=== PATIENT | female | born 1930 | race Caucasian/White ===

== ENCOUNTER 2017-12-10 13:03 | Inpatient (IN) | payer OTHER, BC ==
[~2017-12-10] VITALS: Ht 152.4 cm; Wt 49.6 kg
[2017-12-10 13:08] VITALS: BP 107/58
[2017-12-10] MEDS ORDERED: FLOVENT 220 MCG (13:13)
[2017-12-10] MEDS ORDERED: MELOXICAM TAB 15MG (13:13)
[2017-12-10] MEDS ORDERED: FLUOCINONIDE 0.05% (13:13)
[2017-12-10] MEDS ORDERED: TRAMADOL HCL TAB 50MG (13:13)
[2017-12-10] MEDS ORDERED: HYDROCO/APAP TAB 5-325MG (13:13)
[2017-12-10] MEDS ORDERED: ESTRADIOL 10 MCG (13:13)
[2017-12-10] MEDS ORDERED: [UNRECOGNIZED DRUG - OTHER] (13:13)
[2017-12-10] MEDS ORDERED: LORAZEPAM TAB 0.5MG (13:13)
[2017-12-10] MEDS ORDERED: ONDANSETRON 4 MG/2 ML VIAL IVP ONE (13:20)
[2017-12-10] MEDS ORDERED: NACL 0.9% 1,000 ML IV ONE (13:20)
[2017-12-10] MEDS ORDERED: KETOROLAC 30 MG/ML VIAL IVP ONE (13:20)
[2017-12-10] MEDS ORDERED: NACL 0.9% 1,000 ML IV SCH ×2 (15:00→18:25)
[2017-12-10 15:14] LABS: ANION GAP 10.7 (8-16); BASOPHILS # (AUTO) 0.1 K/uL (0.00-0.22); BASOPHILS % (AUTO) 0.7 % (0.0-2.0); CARBON DIOXIDE 28.4 mmol/L (21-32); CHLORIDE 99 mmol/L (98-107); CREATININE 0.6 mg/dL (0.6-1.3); EOSINOPHILS # (AUTO) 0.1 K/uL (0-0.4); EOSINOPHILS % (AUTO) 0.8 % (0.0-4.0); GLUCOSE 88 mg/dL (74-106); HEMATOCRIT 30.6 % (36-48); LYMPHOCYTES # (AUTO) 0.8 K/uL (2.5-16.5); LYMPHOCYTES % (AUTO) 7.1 % (20.5-51.1); MEAN CORPUSCULAR HEMOGLOBIN 29 pg (27-31); MEAN CORPUSCULAR HGB CONC 33 g/dL (33-37); MEAN CORPUSCULAR VOLUME 88.4 fL (80-94); MONOCYTES # (AUTO) 0.8 K/uL (0.8-1.0); MONOCYTES % (AUTO) 7.4 % (1.7-9.3); PLATELET COUNT (AUTO) 406 K/uL (140-450); POTASSIUM 4.1 mmol/L (3.5-5.1); RED BLOOD CELL COUNT(AUTO) 3.46 MIL/uL (4.20-5.40); RED CELL DISTRIBUTION WIDTH 13.5 % (11.6-13.7); SODIUM SERUM 134 mmol/L (136-145); UREA NITROGEN, BLOOD 13 mg/dL (7-18); WHITE BLOOD COUNT (AUTO) 10.8 K/uL (4.8-10.8)
[2017-12-10 15:17] LABS: ALBUMIN 2.8 g/dL (3.4-5.0); ASPARTATE AMINOTRANSFERASE 22 U/L (15-37); TOTAL BILIRUBIN 0.3 mg/dL (0.0-1.0)
[2017-12-10] MEDS ORDERED: HYDROcodone/APAP 5/325 MG 1 TAB TAB PO PRN (16:10)
[2017-12-10] MEDS ORDERED: ONDANSETRON 4 MG/2 ML VIAL IVP PRN (16:10)
[2017-12-10] MEDS ORDERED: MECLIZINE 25 MG TAB PO PRN (16:10)
[2017-12-10] MEDS ORDERED: ACETAMINOPHEN 325 MG TAB PO PRN (16:10)
[2017-12-10 16:11] LABS: BARBITURATE, URINE NEG. ng/ml (NEG <=200); BENZODIAZEPINE, URINE NEG. ng/mL (NEG <=200); CANNABINOID, URINE NEG. ng/mL (NEG <=50); COCAINE, URINE NEG. ng/mL (NEG <=300); OPIATE, URINE NEG. ng/mL (NEG <=2000); PHENCYCLIDINE SCREEN,URINE NEG. ng/mL (NEG <=25)
[2017-12-10 17:00] VITALS: BP 107/68
[2017-12-10 17:06] LABS: PROTHROMBIN TIME 10.6 secs (10.8-13.4)
[2017-12-10 17:07] LABS: CHOL/HDL RATIO 2.2 (1-4.5); FREE T4 (FREE THYROXINE) 1.17 ng/dL (0.76-1.46); THYROID STIMULATING HORMONE 2.08 uIU/mL (0.34-3.74)
[2017-12-10 17:35] LABS: APPEARANCE,URINE CLEAR (CLEAR); BILIRUBIN,URINE NEGATIVE (NEGATIVE); BLOOD, URINE NEGATIVE (NEGATIVE); COLOR,URINE YELLOW (YELLOW); LEUKOCYTE ESTERASE ,URINE NEGATIVE (NEGATIVE); NITRITE, URINE NEGATIVE (NEGATIVE); PH,URINE 7.5 (5.0-9.0); UGLUCOSE NEGATIVE (NEGATIVE)
[2017-12-10] MEDS ORDERED: ALBUTEROL SULFATE/IPRATROPIU 3 ML SOL IH PRN (18:25)
[2017-12-10] MEDS ORDERED: SIMETHICONE 80 MG TAB.CHEW PO PRN (18:25)
[2017-12-10] MEDS ORDERED: ALBU0.0912 INH (18:26)
[2017-12-10] MEDS ORDERED: SIME80CT70 PO (18:26)
[2017-12-10] MEDS ORDERED: ASPI81CT89 PO (18:26)
[2017-12-10] MEDS ORDERED: FLONAS NS (18:26)
[2017-12-10] MEDS: KETOROLAC 15 MG/ML VIAL IVP PRN (18:48)
[2017-12-10 20:00] VITALS: BP 113/48
[2017-12-10] MEDS ORDERED: SODIUM PHOSPHATE 118 ML ENEM RC SCH (23:00)
[2017-12-11 00:04] VITALS: BP 122/57
[2017-12-11] MEDS: KETOROLAC 15 MG/ML VIAL IVP PRN ×2 (00:07→08:34)
[2017-12-11 04:00] VITALS: BP 114/44
[2017-12-11] MEDS: PANTOPRAZOLE 40 MG TABEC PO SCH (06:30)
[2017-12-11 06:57] LABS: ANION GAP 12.7 (8-16); CARBON DIOXIDE 27.4 mmol/L (21-32); CHLORIDE 102 mmol/L (98-107); CREATININE 0.7 mg/dL (0.6-1.3); GLUCOSE 96 mg/dL (74-106); POTASSIUM 4.1 mmol/L (3.5-5.1); SODIUM SERUM 138 mmol/L (136-145); UREA NITROGEN, BLOOD 17 mg/dL (7-18)
[2017-12-11 07:09] LABS: MAGNESIUM 2.2 mg/dL (1.8-2.4); PHOSPHORUS 4.2 mg/dL (2.5-4.9)
[2017-12-11 07:15] LABS: BASOPHILS # (AUTO) 0.1 K/uL (0.00-0.22); BASOPHILS % (AUTO) 1.5 % (0.0-2.0); EOSINOPHILS # (AUTO) 0.1 K/uL (0-0.4); EOSINOPHILS % (AUTO) 1.7 % (0.0-4.0); HEMOGLOBIN 9.2 g/dL (12.0-16.0); LYMPHOCYTES # (AUTO) 1.1 K/uL (2.5-16.5); LYMPHOCYTES % (AUTO) 14.6 % (20.5-51.1); MEAN CORPUSCULAR HEMOGLOBIN 28 pg (27-31); MEAN CORPUSCULAR HGB CONC 32 g/dL (33-37); MEAN CORPUSCULAR VOLUME 88.7 fL (80-94); MONOCYTES # (AUTO) 0.8 K/uL (0.8-1.0); MONOCYTES % (AUTO) 9.9 % (1.7-9.3); NEUTROPHILS # (AUTO) 5.8 K/uL (1.8-7.7); NEUTROPHILS % (AUTO) 72.3 % (42.2-75.2); PLATELET COUNT (AUTO) 360 K/uL (140-450); RED BLOOD CELL COUNT(AUTO) 3.28 MIL/uL (4.20-5.40); RED CELL DISTRIBUTION WIDTH 13.2 % (11.6-13.7); WHITE BLOOD COUNT (AUTO) 7.9 K/uL (4.8-10.8)
[2017-12-11 08:00] VITALS: BP 122/49
[2017-12-11] MEDS: DOCUSATE 100 MG/10 ML UDC GT SCH ×2 (08:32→13:06)
[2017-12-11] MEDS: FLUTICASONE NASAL 50 MCG/ACTUATION 16 GM BTL NS SCH (08:32)
[2017-12-11 12:00] VITALS: BP 89/44
[2017-12-11] MEDS: traMADol 50 MG TAB PO PRN ×2 (12:32→17:32)
[2017-12-11] MEDS: MIDODRINE 5 MG TAB PO SCH ×2 (12:34→19:42)
[2017-12-11 16:00] VITALS: BP 107/46
[2017-12-11 20:00] VITALS: BP 119/50
[2017-12-12] VITALS: BP 145/76
[2017-12-12] MEDS: KETOROLAC 15 MG/ML VIAL IVP PRN (00:08)
[2017-12-12 04:00] VITALS: BP 115/47
[2017-12-12] MEDS: PANTOPRAZOLE 40 MG TABEC PO SCH (06:06)
[2017-12-12] MEDS: MIDODRINE 5 MG TAB PO SCH (06:06)
[2017-12-12 07:05] LABS: BASOPHILS # (AUTO) 0.1 K/uL (0.00-0.22); BASOPHILS % (AUTO) 1.2 % (0.0-2.0); EOSINOPHILS # (AUTO) 0.1 K/uL (0-0.4); EOSINOPHILS % (AUTO) 1.5 % (0.0-4.0); HEMATOCRIT 27.2 % (36-48); LYMPHOCYTES # (AUTO) 1.3 K/uL (2.5-16.5); LYMPHOCYTES % (AUTO) 17.1 % (20.5-51.1); MEAN CORPUSCULAR HEMOGLOBIN 29 pg (27-31); MEAN CORPUSCULAR HGB CONC 33 g/dL (33-37); MEAN CORPUSCULAR VOLUME 86.8 fL (80-94); MONOCYTES # (AUTO) 0.8 K/uL (0.8-1.0); MONOCYTES % (AUTO) 10.5 % (1.7-9.3); NEUTROPHILS # (AUTO) 5.6 K/uL (1.8-7.7); NEUTROPHILS % (AUTO) 69.7 % (42.2-75.2); PLATELET COUNT (AUTO) 368 K/uL (140-450); RED BLOOD CELL COUNT(AUTO) 3.14 MIL/uL (4.20-5.40); RED CELL DISTRIBUTION WIDTH 13.6 % (11.6-13.7); WHITE BLOOD COUNT (AUTO) 7.9 K/uL (4.8-10.8)
[2017-12-12 07:10] LABS: ANION GAP 13.2 (8-16); CARBON DIOXIDE 24.6 mmol/L (21-32); CHLORIDE 100 mmol/L (98-107); CREATININE 0.6 mg/dL (0.6-1.3); GLUCOSE 87 mg/dL (74-106); POTASSIUM 3.8 mmol/L (3.5-5.1); SODIUM SERUM 134 mmol/L (136-145); UREA NITROGEN, BLOOD 27 mg/dL (7-18)
[2017-12-12 08:00] VITALS: BP 125/48
[2017-12-12] MEDS ORDERED: MIDO10TA PO (08:42)
[2017-12-12] MEDS ORDERED: DOCUSATE 100 MG/10 ML UDC GT SCH (09:00)
[2017-12-12] MEDS ORDERED: PSYLLIUM 12.2 GM/PKT PO SCH (09:00)
[2017-12-12] MEDS: FLUTICASONE NASAL 50 MCG/ACTUATION 16 GM BTL NS SCH (09:00)
[2017-12-12 11:30] VITALS: BP 132/52
== END 2017-12-12 11:45 | disposition home or self-care (01) | DRG 312 ==
LOC: MED 13:03 → MTU 16:06
PROVIDERS: ADMIT Family Medicine Sports Medicine; ATTEND Family Medicine Sports Medicine
DX: I95.1 Orthostatic hypotension (principal); N17.0 Acute kidney failure with tubular necrosis; E43 Unspecified severe protein-calorie malnutrition; M48.56XA Collapsed vertebra, not elsewhere classified, lumbar region, initial encounter for fracture; E87.1 Hypo-osmolality and hyponatremia; Z72.820 Sleep deprivation; M40.202 Unspecified kyphosis, cervical region; M43.12 Spondylolisthesis, cervical region; D63.8 Anemia in other chronic diseases classified elsewhere; J45.909 Unspecified asthma, uncomplicated; G89.29 Other chronic pain; M54.9 Dorsalgia, unspecified; Z66 Do not resuscitate; M19.90 Unspecified osteoarthritis, unspecified site; I65.29 Occlusion and stenosis of unspecified carotid artery; I35.0 Nonrheumatic aortic (valve) stenosis; M81.0 Age-related osteoporosis without current pathological fracture; M48.00 Spinal stenosis, site unspecified; K58.1 Irritable bowel syndrome with constipation; M62.58 Muscle wasting and atrophy, not elsewhere classified, other site; Z96.641 Presence of right artificial hip joint; M48.8X9 Other specified spondylopathies, site unspecified; I44.1 Atrioventricular block, second degree; Z88.5 Allergy status to narcotic agent; Z88.8 Allergy status to other drugs, medicaments and biological substances; Z90.49 Acquired absence of other specified parts of digestive tract; Z79.899 Other long term (current) drug therapy; Z68.21 Body mass index [BMI] 21.0-21.9, adult
CPT/HCPCS: 36415; 70450; 71045; 72050; 74018; 80048; 80053; 80305; 81003; 82150; 83036; 83690; 83735; 83880; 84100; 84439; 84443; 84479; 84484; 85025; 85610; 85730; 87081; 93005; 93880; 96374; 96375; 97110; 99285; J1885; J2405; J7030; Q0092

== ENCOUNTER 2017-12-21 16:32 | Inpatient (IN) | payer OTHER, BC ==
[~2017-12-21] VITALS: Ht 152.4 cm; Wt 47.2 kg
[~2017-12-21 16:32] MED LIST: ALBU0.0912 INH; ASPI81CT89 PO; ESTRADIOL 10 MCG; FLONAS NS; FLOVENT 220 MCG; FLUOCINONIDE 0.05%; HYDROCO/APAP TAB 5-325MG; LORAZEPAM TAB 0.5MG; MELOXICAM TAB 15MG; MIDO10TA PO; SIME80CT70 PO; TRAMADOL HCL TAB 50MG; [UNRECOGNIZED DRUG - OTHER]
[2017-12-21 16:53] VITALS: BP 115/47
--- NOTE | 2017-12-21 18:03 | NUR ---
PATIENT TO BED #2
--- NOTE | 2017-12-21 18:09 | NUR ---
87Y F BIB FAMILY C/O COSTIPATION X 2 DAYS. PT STATES SHE NORMALLY HAS A BM 2-3X A DAY. PT STATES SHE HAS A L1 COMPRESSION FRACTURE. PT WAS SEEN YESTERDAY AT [facility] WHERE THEY STRAIGHT CATH HER AND GOT RELIEF. PT STATES ATTEMPTED FLEET ENEMA AND GLYCERIN SUPP TODAY AT 1300 AND 1330 AND STILL NO RELIEF. ER MD DR HERNANDEZ MADE AWARE.
--- NOTE | 2017-12-21 18:40 | NUR ---
PT PROVIDED URINE CUP, BUT STATES SHE IS CANNOT URINATE BC SHE IS CONSTIPATED. ER MD DR HERNANDEZ MADE AWARE.
--- NOTE | 2017-12-21 18:40 | NUR ---
SPOKE TO PT PT OK WITH STRIAT CATH FOR URINE COLLECTION, SPOKE TO DR HERNANDEZ, OK TO [facility] CATH.
[2017-12-21 18:44] LABS: BASOPHILS # (AUTO) 0.1 K/uL (0.00-0.22); BASOPHILS % (AUTO) 0.8 % (0.0-2.0); EOSINOPHILS # (AUTO) 0.1 K/uL (0-0.4); EOSINOPHILS % (AUTO) 1.5 % (0.0-4.0); HEMATOCRIT 29.7 % (36-48); HEMOGLOBIN 9.6 g/dL (12.0-16.0); LYMPHOCYTES # (AUTO) 1.5 K/uL (2.5-16.5); LYMPHOCYTES % (AUTO) 18.5 % (20.5-51.1); MEAN CORPUSCULAR HEMOGLOBIN 28 pg (27-31); MEAN CORPUSCULAR HGB CONC 32 g/dL (33-37); MEAN CORPUSCULAR VOLUME 87.4 fL (80-94); MONOCYTES # (AUTO) 0.6 K/uL (0.8-1.0); MONOCYTES % (AUTO) 7.8 % (1.7-9.3); NEUTROPHILS # (AUTO) 5.8 K/uL (1.8-7.7); NEUTROPHILS % (AUTO) 71.4 % (42.2-75.2); PLATELET COUNT (AUTO) 592 K/uL (140-450); RED CELL DISTRIBUTION WIDTH 14.5 % (11.6-13.7); WHITE BLOOD COUNT (AUTO) 8.1 K/uL (4.8-10.8)
[2017-12-21 18:54] LABS: ANION GAP 11.1 (8-16); CARBON DIOXIDE 28.2 mmol/L (21-32); CHLORIDE 97 mmol/L (98-107); CREATININE 0.7 mg/dL (0.6-1.3); GLUCOSE 94 mg/dL (74-106); POTASSIUM 4.3 mmol/L (3.5-5.1); SODIUM SERUM 132 mmol/L (136-145); UREA NITROGEN, BLOOD 15 mg/dL (7-18)
[2017-12-21 19:00] LABS: ALBUMIN 2.6 g/dL (3.4-5.0); ASPARTATE AMINOTRANSFERASE 22 U/L (15-37); LIPASE 93 U/L (73-393); TOTAL BILIRUBIN 0.2 mg/dL (0.0-1.0)
--- NOTE | 2017-12-21 19:15 | NUR ---
Pt report given to EASTON. Transfer of care at this time.
--- NOTE | 2017-12-21 19:15 | NUR ---
RECEIVED REPORT FROM SB VOGEL AND MARLEN DICKERSON
[2017-12-21 19:22] LABS: APPEARANCE,URINE CLEAR (CLEAR); BILIRUBIN,URINE NEGATIVE (NEGATIVE); BLOOD, URINE NEGATIVE (NEGATIVE); COLOR,URINE YELLOW (YELLOW); LEUKOCYTE ESTERASE ,URINE NEGATIVE (NEGATIVE); NITRITE, URINE NEGATIVE (NEGATIVE); PH,URINE 5.5 (5.0-9.0); UGLUCOSE NEGATIVE (NEGATIVE)
[2017-12-21] MEDS ORDERED: MORPHINE SULFATE 4 MG/ML SYR IVP ONE (20:50)
[2017-12-21] MEDS ORDERED: NACL 0.9% 1,000 ML IV ONE (20:50)
[2017-12-21] MEDS ORDERED: ONDANSETRON 4 MG/2 ML VIAL IVP PRN (21:30)
[2017-12-21] MEDS ORDERED: HYDROcodone/APAP 7.5/325 MG 1 TAB PO PRN (21:30)
[2017-12-21 22:29] LABS: CHOL/HDL RATIO 2.2 (1-4.5); FREE T4 (FREE THYROXINE) 1.06 ng/dL (0.76-1.46); PHOSPHORUS 4.1 mg/dL (2.5-4.9); THYROID STIMULATING HORMONE 1.99 uIU/mL (0.34-3.74)
[2017-12-21 22:30] VITALS: BP 116/61
--- NOTE | 2017-12-21 22:30 | NUR ---
PATIENT ADMITTED TO THE UNIT FROM ER. PATIENT AWAKE, ALERT AND ORIENTED. NO S/S OF DISTRESS. PATIENT ON ROOM AIR. NO SOB. RAYO CATHETER IN PLACE DRAINING CLEAR YELLOW URINE. IV LINE NOTED TO THE RIGHT FOREARM SALINE LOCKED. PATIENT PLACED ON TELE MONITORING. FALL PRECAUTIONS IN PLACE. WILL CONTINUE TO MONITOR
--- NOTE | 2017-12-21 23:03 | NUR ---
PATIENT REFUSED TO HAVE ENEMA. PATIENT STATES, "I ALREADY HAD AN ENEMA THIS MORNING. IT DOES NOT WORK." MADE DR FIGUEROA AWARE
[2017-12-22] VITALS: BP 118/62
--- NOTE | 2017-12-22 | NUR ---
ACTUAL TIME AND DATE OF DOCUMENTATION 222912/21/17
--- NOTE | 2017-12-22 00:06 | NUR ---
ACTUAL DATE AND TIME OF DOCUMENTATION 12/21 2229 Addendum: 12/22/17 at 0007 by Ovi Betancourt RN Amended: Links added.
--- NOTE | 2017-12-22 00:08 | NUR ---
ACTUAL DATE AND TIME OF DOCUMENTATION 12/21 2229 Addendum: 12/22/17 at 0008 by Ovi Betancourt RN Amended: Links added.
--- NOTE | 2017-12-22 00:09 | NUR ---
ACTUAL DATE AND TIME OF DOCUMENTATION 12/21 2229 Addendum: 12/22/17 at 0009 by Ovi Betancourt RN Amended: Links added.
--- NOTE | 2017-12-22 00:10 | NUR ---
ACTUAL DATE AND TIME OF DOCUMENTATION 12/21 2229 Addendum: 12/22/17 at 0010 by Ovi Betancourt RN Amended: Links added.
[2017-12-22] MEDS ORDERED: SIMETHICONE 80 MG TAB.CHEW PO SCH ×2 (01:15→06:20)
[2017-12-22] MEDS ORDERED: ALBUTEROL SULFATE/IPRATROPIU 3 ML SOL IH PRN (01:20)
[2017-12-22] MEDS ORDERED: SIMETHICONE 80 MG TAB.CHEW PO PRN ×2 (01:25→08:00)
[2017-12-22] MEDS: NACL 0.9% 1,000 ML IV SCH ×2 (02:00→14:45)
[2017-12-22 04:00] VITALS: BP 133/58
[2017-12-22] MEDS ORDERED: GLYCERIN ADULT 1 SUPP RC SCH (06:00)
[2017-12-22] MEDS ORDERED: FERRIC GLUCONATE 125 MG in NACL 0.9% 100 ML IV SCH (06:00)
--- NOTE | 2017-12-22 06:00 | NUR ---
PATIENT COMPLAINS OF BLADDER DISCOMFORT AND REQUESTS TO HAVE HER RAYO CATHETER DISCONTINUED. MADE DR FIGUEROA AWARE
[2017-12-22 06:35] LABS: BASOPHILS % (AUTO) 0.5 % (0.0-2.0); EOSINOPHILS # (AUTO) 0.1 K/uL (0-0.4); EOSINOPHILS % (AUTO) 1.4 % (0.0-4.0); HEMATOCRIT 25.6 % (36-48); HEMOGLOBIN 8.4 g/dL (12.0-16.0); LYMPHOCYTES # (AUTO) 1.5 K/uL (2.5-16.5); LYMPHOCYTES % (AUTO) 17.7 % (20.5-51.1); MEAN CORPUSCULAR HEMOGLOBIN 29 pg (27-31); MEAN CORPUSCULAR HGB CONC 33 g/dL (33-37); MEAN CORPUSCULAR VOLUME 87.8 fL (80-94); MONOCYTES # (AUTO) 0.6 K/uL (0.8-1.0); MONOCYTES % (AUTO) 6.9 % (1.7-9.3); NEUTROPHILS # (AUTO) 6.4 K/uL (1.8-7.7); NEUTROPHILS % (AUTO) 73.5 % (42.2-75.2); PLATELET COUNT (AUTO) 458 K/uL (140-450); RED BLOOD CELL COUNT(AUTO) 2.92 MIL/uL (4.20-5.40); RED CELL DISTRIBUTION WIDTH 14.3 % (11.6-13.7); WHITE BLOOD COUNT (AUTO) 8.7 K/uL (4.8-10.8)
--- NOTE | 2017-12-22 06:38 | NUR ---
PATIENT REFUSES TO HAVE THE GLYCERIN SUPPOSITORY. PATIENT STATES, "I HAVE TAKEN THAT BEFORE I WENT HERE AND IT DOES NOT HELP." DR FIGUEROA AWARE
[2017-12-22 06:52] LABS: ANION GAP 10.7 (8-16); CARBON DIOXIDE 26.2 mmol/L (21-32); CHLORIDE 104 mmol/L (98-107); CREATININE 0.5 mg/dL (0.6-1.3); GLUCOSE 82 mg/dL (74-106); POTASSIUM 3.9 mmol/L (3.5-5.1); SODIUM SERUM 137 mmol/L (136-145); UREA NITROGEN, BLOOD 11 mg/dL (7-18)
[2017-12-22 06:59] LABS: MAGNESIUM 1.9 mg/dL (1.8-2.4); PHOSPHORUS 2.9 mg/dL (2.5-4.9)
--- NOTE | 2017-12-22 07:29 | NUR ---
PATIENT REPORT GIVEN AT BEDSIDE. PATIENT ENDORSED IN STABLE CONDITION
--- NOTE | 2017-12-22 07:30 | NUR ---
RECEIVED REPORT FROM PROFESSOR OF FAMILY MEDICINE NURSE SETH AT BEDSIDE FOR CONTINUITY OF CARE. PT IS AWAKE AND ORIENTED X4. INTRODUCED SELF AND UPDATED BOARD. NO SIGNS OF DISTRESS. WILL CONTINUE TO MONITOR.
[2017-12-22 08:00] VITALS: BP 141/68
--- NOTE | 2017-12-22 08:00 | NUR ---
PATIENT AWAKE AND ALERT. SITTING UP IN BED. DENIES SOB. DENIES ANY RESPIRATORY DISCOMFORT. BREATH SOUNDS CLEAR. HR 72. O2 SAT 97% ON ROOM AIR. NO TX INDICATED AT THIS TIME. NO RESPIRATORY DISTRESS NOTED AT THIS TIME. WILL CONTINUE TO MONITOR.
[2017-12-22] MEDS ORDERED: DOCUSATE SODIUM 100 MG GELCAP PO SCH ×2 (09:00→10:00)
[2017-12-22] MEDS: ASPIRIN 81 MG TAB.CHEW PO SCH (09:00)
[2017-12-22] MEDS: FLUTICASONE NASAL 50 MCG/ACTUATION 16 GM BTL NS SCH (09:00)
--- NOTE | 2017-12-22 10:29 | NUR ---
PATIENT HAS BEEN SCREENED AND CATEGORIZED MODERATE NUTRITION RISK. PATIENT WILL BE SEEN WITHIN 3-5 DAYS OF ADMISSION. 12/24/17 - 12/26/[address]
[2017-12-22] MEDS: FERRIC GLUCONATE 125 MG in NACL 0.9% 100 ML IV SCH (11:28)
[2017-12-22] MEDS: SODIUM PHOSPHATE 118 ML ENEM RC PRN ×4 (11:28→22:03)
--- NOTE | 2017-12-22 11:28 | NUR ---
ADMINISTERED FLEET ENEMA. PT HAD NO BM POST ADMIN. PT YELLING AND SCREAMING OF PAIN. ASSISTED PT BACK TO BED, WILL CONTINUE TO MONITOR
[2017-12-22] MEDS: ACETAMINOPHEN 325 MG TAB PO PRN (11:51)
[2017-12-22] MEDS ORDERED: ACETAMINOPHEN 325 MG TAB ONE (11:52)
[2017-12-22 12:00] VITALS: BP 107/48
[2017-12-22] MEDS ORDERED: MAGNESIUM CITRATE 300 ML BTL PO PRN (13:00)
--- NOTE | 2017-12-22 13:15 | NUR ---
DR. ANTONIO CAME IN AND SPOKE WITH PT AND CAREGIVER. PT REPORTED THAT SHE STILL HAD NO BM AFTER ENEMA AND WANTS A BOWEL VAC. TOLD PT THAT CANNOT BE DONE HERE AND ORDERED MAG CIT[employer].
--- NOTE | 2017-12-22 14:50 | NUR ---
DR. ANTONIO WITH PT FOR DIGITAL FECAL DISIMPACTION. SMALL PIECE OF STOOL ELIMINATED. PT YELLING AND SCREAMING AT AND RN. PT ASKING FOR ANOTHER FLEET ENEMA. WILL GIVE ENEMA.
--- NOTE | 2017-12-22 14:53 | NUR ---
CM NOTE ADMISSION REVIEW FOR CRITERIA DONE
[2017-12-22 16:00] VITALS: BP 131/61
--- NOTE | 2017-12-22 16:51 | NUR ---
ADMINISTERED FLEET ENEMA. PT HAS SMALL PIECE OF STOOL COME OUT. PT GOT UP TO USE BATHROOM ASSISTED WITH CAREGIVER AND YELLING AND SCREAMING OF PAINFUL URGE FOR BM. PT ASKING FOR ANOTHER ENEMA. WILL TRY AGAIN LATER.
--- NOTE | 2017-12-22 18:00 | NUR ---
STRAIGHT CATH DONE. 400ML URINE NOTED.
--- NOTE | 2017-12-22 19:25 | NUR ---
ENDORSED PT TO ROLL THREADER OPERATOR NURSE SETH AT BEDSIDE FOR CONTINUITY OF CARE. PT'S CAREGIVER AT BEDSIDE. PT IN STABLE CONDITION.
[2017-12-22 19:43] VITALS: BP 129/67
--- NOTE | 2017-12-22 20:00 | NUR ---
PATIENT IS REQUESTING FOR AN ENEMA. PATIENT HAD 3 ENEMA IN THE DAY SHIFT. PER DAY SHIFT RN, PATIENT HAD EVACUATED SMALL STOOLS. MADE DR FIGUEROA AWARE. PER KAVITHA PETERSEN TO ADMINISTER ANOTHER ENEMA
--- NOTE | 2017-12-22 20:00 | NUR ---
EXPLAINED TO THE PATIENT THAT SHE JUST HAD AN ENEMA 2 HOURS AGO. PATIENT AGREED TO HAVE THE ENEMA LATER
[2017-12-22] MEDS: DOCUSATE SODIUM 100 MG GELCAP PO SCH (21:51)
[2017-12-22] MEDS ORDERED: METHOCARBAMOL 500 MG TAB PO SCH (23:00)
[2017-12-22] MEDS ORDERED: LACTULOSE 20 GM/30 ML UDC PO SCH (23:00)
--- NOTE | 2017-12-22 23:31 | NUR ---
STRAIGHT CATH DONE. 500ML OF CLEAR YELLOW URINE NOTED
[2017-12-23] VITALS: BP 137/47
--- NOTE | 2017-12-23 00:30 | NUR ---
ADMINISTERED SOAP SUDS ENEMA. PATIENT HAD LOOSE BM. PATIENT REPORTS OF MILD RELIEF. PATIENT CLEANED AND REPOSITIONED FOR COMFORT
--- NOTE | 2017-12-23 01:35 | NUR ---
PATIENT HAD A BM. STOOL LOOSE AND MODERATE IN AMOUNT. PATIENT CLEANED IN BED. PADS CHANGED. PATIENT TURNED AND REPOSITIONED FOR COMFORT. WILL CONTINUE TO MONITOR
--- NOTE | 2017-12-23 03:35 | NUR ---
PATIENT HAD A BM. STOOL LARGE AND LOOSE IN CONSISTENCY. PATIENT CLEANED AND REPOSITIONED FOR COMFORT
[2017-12-23 04:00] VITALS: BP 124/50
[2017-12-23] MEDS ORDERED: ACETAMINOPHEN 325 MG TAB ONE ×2 (04:00→09:33)
[2017-12-23] MEDS: ACETAMINOPHEN 325 MG TAB PO PRN ×2 (04:01→09:35)
[2017-12-23] MEDS: NACL 0.9% 1,000 ML IV SCH (04:05)
--- NOTE | 2017-12-23 05:40 | NUR ---
PATIENT C/O BLADDER DISCOMFORT. BLADDER SCAN DONE AT BEDSIDE. 350ML RESIDUAL NOTED. STRAIGHT CATH DONE. 550 ML OF CLEAR YELLOW URINE DRAINED. PATIENT HAD ANOTHER BM. STOOL LOOSE AND MODERATE IN AMOUNT. PATIENT CLEANED AND REPOSITIONED FOR COMFORT.
[2017-12-23 06:11] LABS: BASOPHILS % (AUTO) 0.4 % (0.0-2.0); EOSINOPHILS # (AUTO) 0.1 K/uL (0-0.4); EOSINOPHILS % (AUTO) 0.8 % (0.0-4.0); HEMATOCRIT 27.7 % (36-48); HEMOGLOBIN 9.2 g/dL (12.0-16.0); LYMPHOCYTES # (AUTO) 1.5 K/uL (2.5-16.5); MEAN CORPUSCULAR HEMOGLOBIN 29 pg (27-31); MEAN CORPUSCULAR HGB CONC 33 g/dL (33-37); MEAN CORPUSCULAR VOLUME 86.5 fL (80-94); MONOCYTES # (AUTO) 0.9 K/uL (0.8-1.0); MONOCYTES % (AUTO) 7.9 % (1.7-9.3); NEUTROPHILS # (AUTO) 9.1 K/uL (1.8-7.7); NEUTROPHILS % (AUTO) 77.9 % (42.2-75.2); PLATELET COUNT (AUTO) 528 K/uL (140-450); RED CELL DISTRIBUTION WIDTH 14.4 % (11.6-13.7); WHITE BLOOD COUNT (AUTO) 11.7 K/uL (4.8-10.8)
--- NOTE | 2017-12-23 07:08 | NUR ---
PATIENT REPORT GIVEN TO DAY SHIFT NURSE. PATIENT ENDORSED IN STABLE CONDITION
--- NOTE | 2017-12-23 07:10 | NUR ---
RECEIVED REPORT FROM TRUST ADMINISTRATOR NURSE, PER TRUST ADMINISTRATOR NURSE, PT REQUESTED TO HAVE RAYO CATHETER TAKEN OUT, ORDER FOR RAYO CATH WAS CANCELLED, PT IS RESTING IN BED, AAOX4, FORGETFUL, AMBULATES WITH ASSIST, PT HAS IV ON HER LEFT FA, PATENT, INTACT, FLUSHING WELL, PT IS ON ROOM AIR, NO S/S OF RESPIRATORY DISTRESS OR DISCOMFORT NOTED, DISCUSSED PLAN OF CARE WITH PT, PT VERBALIZED UNDERSTANDING, SAFETY/FALL PRECAUTIONS ARE IN PLACE, CALL LIGHT IS WITHIN REACH, WILL CONTINUE TO MONITOR.
[2017-12-23 08:00] VITALS: BP 102/70
--- NOTE | 2017-12-23 08:30 | NUR ---
ASSISTED PT TO RESTROOM, PT HAS LOOSE, SMALL , BROWN, BOWEL MOVEMENT. PT ALSO STATED, SHE FELT PRESSURE AND FELT LIKE SHE NEEDED TO URINATE BUT COULD NOT. PT REQUESTED FOR STRAIGHT CATHETERIZATION. PT REFUSED A RAYO CATHETER RE INSERTION, PT STATED, " RAYO CATHETER IRRITATES MY URETHRA AND IT'S VERY UNCOMFORTABLE."
[2017-12-23 08:51] LABS: ANION GAP 14.3 (8-16); CARBON DIOXIDE 25.2 mmol/L (21-32); CHLORIDE 99 mmol/L (98-107); CREATININE 0.6 mg/dL (0.6-1.3); GLUCOSE 87 mg/dL (74-106); POTASSIUM 3.5 mmol/L (3.5-5.1); SODIUM SERUM 135 mmol/L (136-145); UREA NITROGEN, BLOOD 6 mg/dL (7-18)
[2017-12-23 08:59] LABS: MAGNESIUM 2.2 mg/dL (1.8-2.4); PHOSPHORUS 2.7 mg/dL (2.5-4.9)
[2017-12-23] MEDS: ASPIRIN 81 MG TAB.CHEW PO SCH (09:00)
[2017-12-23] MEDS: FLUTICASONE NASAL 50 MCG/ACTUATION 16 GM BTL NS SCH (09:00)
[2017-12-23] MEDS: DOCUSATE SODIUM 100 MG GELCAP PO SCH (09:00)
[2017-12-23] MEDS ORDERED: LACT10SO1 PO (10:08)
[2017-12-23] MEDS: FERRIC GLUCONATE 125 MG in NACL 0.9% 100 ML IV SCH (10:44)
--- NOTE | 2017-12-23 11:30 | NUR ---
ASSISTED PT RESTROOM AND BACK INTO BED. ALL NEEDS ARE MET AT THIS TIME. CALL LIGHT IS WITHIN REACH.
--- NOTE | 2017-12-23 11:33 | NUR ---
STRAIGHT CATH WAS PERFORMED. 500 ML OF URINE WAS DRAINED, CLEAR, DALJIT COLOR. PATIENT TOLERATED WELL. PATIENT STATED SHE WANTED TO KNOW THE OPTION OF STRAIGHT CATH AT HOME. DR. ANTONIO WAS MADE AWARE.
[2017-12-23 12:00] VITALS: BP 105/70
--- NOTE | 2017-12-23 12:15 | NUR ---
DISCHARGE INSTRUCTIONS GIVEN, ID WRIST BAND REMOVED. CAREGIVER (JEANNA) HERE TO BRANCH RETAIL EXECUTIVE PATIENT.
--- NOTE | 2017-12-23 12:30 | NUR ---
PATIENT AGREED TO HAVE RAYO CATHETER INSERTED. 16 F RYAO CATHETER WAS INSERTED.
--- NOTE | 2017-12-23 13:53 | NUR ---
CM NOTE RECEIVED ORDER FOR HOME HEALTH. PER WORKER ALMAZ, SHE SPOKE WITH PATIENT AND PATIENT HAS NO SPECIFIC HOME HEALTH PREFERENCE. FAXED INQUIRY TO [facility] [phone] AND INFORMED THEM OF PATIENT BEING DISCHARGED TODAY. PER MAURO OF [facility] PH# [phone], THEY ARE ACCEPTING THE PATIENT AND THEY HAVE A NURSE TO SEE PATIENT STARTING TOMORROW. CHARGE NURSE KELI MARK.
--- NOTE | 2017-12-23 14:00 | NUR ---
NOTIFIED DR. ANTONIO THE PATIENT WANTED TO THE RAYO CATHETER REMOVED AND DID NOT WANT TO GO HOME WITH IT. PER DR. ANTONIO, HE WILL TALK TO THE PATIENT.
--- NOTE | 2017-12-23 14:30 | NUR ---
PT WAS DISCHARGED WITH RAYO CATHETER IN PLACE. PATIENT WAS INFORMED THAT [facility] WOULD BE CONTACTING HER FOR RAYO CATHETER AT HOME CARE. PT VERBALIZED UNDERSTANDING.
[2017-12-23 15:09] LABS: FOLIC ACID 19.4 ng/mL (>3.0)
== END 2017-12-23 14:15 | disposition home health service (06) | DRG 388 ==
LOC: MED 16:32 → UNDOADMIN 21:31 → MTU 21:31 → OBSVTOIN 12-23 09:16
PROVIDERS: ADMIT Family Medicine Sports Medicine; ATTEND Family Medicine Sports Medicine
DX: K56.600 Partial intestinal obstruction, unspecified as to cause (principal); E43 Unspecified severe protein-calorie malnutrition; D64.9 Anemia, unspecified; M80.88XA Other osteoporosis with current pathological fracture, vertebra(e), initial encounter for fracture; E87.1 Hypo-osmolality and hyponatremia; K56.41 Fecal impaction; K58.9 Irritable bowel syndrome, unspecified; Z66 Do not resuscitate; R33.9 Retention of urine, unspecified; D72.828 Other elevated white blood cell count; J45.909 Unspecified asthma, uncomplicated; M19.90 Unspecified osteoarthritis, unspecified site; K80.80 Other cholelithiasis without obstruction; Z96.641 Presence of right artificial hip joint; D47.3 Essential (hemorrhagic) thrombocythemia; Z88.5 Allergy status to narcotic agent; Z88.8 Allergy status to other drugs, medicaments and biological substances; Z79.82 Long term (current) use of aspirin; Z68.20 Body mass index [BMI] 20.0-20.9, adult; Z79.899 Other long term (current) drug therapy; G89.4 Chronic pain syndrome; M54.9 Dorsalgia, unspecified
CPT/HCPCS: 96361; 96374; 99285; G0378; 36415; 71045; 80048; 80053; 81003; 82150; 82607; 82728; 82746; 83540; 83605; 83690; 83735; 83880; 84100; 84439; 84443; 84484; 85025; 85045; 85610; 85730; 87081; 93005; C1758; J2270; J2916; J7030; Q0092

== ENCOUNTER 2017-12-24 03:20 | Emergency (ER) | payer OTHER, BC ==
[~2017-12-24] VITALS: Ht 142.2 cm; Wt 45.1 kg
[~2017-12-24 03:20] MED LIST changes: +LACT10SO1 PO
[2017-12-24 03:28] VITALS: BP 131/55
--- NOTE | 2017-12-24 03:49 | NUR ---
Placed pt in Bed 12.
--- NOTE | 2017-12-24 04:05 | NUR ---
Chris cath d/c'd per female nurse. Pt suddenly decided she did not want one reinserted. "Just straight cath me and send me home." Notified Dr Marx who spoke with pt.
--- NOTE | 2017-12-24 04:30 | NUR ---
Catheter inserted per female nurse, but only approx. 100 ml cloudy yellow urine returned. Notified Dr Marx. Bladder scanner used and no urine noted in bladder. Vy well. Catheter removed.
--- NOTE | 2017-12-24 05:00 | NUR ---
Rectum digitally checked. No stool noted. Vy well.
[2017-12-24 05:12] LABS: APPEARANCE,URINE CLOUDY (CLEAR); BILIRUBIN,URINE NEGATIVE (NEGATIVE); BLOOD, URINE 2+ (NEGATIVE); COLOR,URINE YELLOW (YELLOW); LEUKOCYTE ESTERASE ,URINE 1+ (NEGATIVE); NITRITE, URINE NEGATIVE (NEGATIVE); PH,URINE 8.5 (5.0-9.0); UGLUCOSE NEGATIVE (NEGATIVE)
[2017-12-24 05:24] LABS: RBC,URINE 3-10 (FEW) /HPF (0-5)
[2017-12-24 05:50] VITALS: BP 127/61
--- NOTE | 2017-12-24 05:50 | NUR ---
Patient discharged with v/s stable. Written and verbal after care instructions given and explained. Patient verbalized understanding. Wheel Chair Assisted to car. All questions addressed prior to discharge. Advised to follow up with PMD.
== END 2017-12-24 05:50 | disposition home or self-care (01) ==
LOC: MED 03:20
DX: Z46.6 Encounter for fitting and adjustment of urinary device (principal); J44.9 Chronic obstructive pulmonary disease, unspecified; Z79.899 Other long term (current) drug therapy; Z79.82 Long term (current) use of aspirin; Z88.5 Allergy status to narcotic agent; Z88.8 Allergy status to other drugs, medicaments and biological substances
CPT/HCPCS: 81001; 87086; 87186; 99284